=== PATIENT | female | born 2000 | race African-American/Black ===

== ENCOUNTER 2024-03-30 16:17 | Emergency (ER) | payer MEDICAID, SELFPAY ==
[2024-03-30 16:43] VITALS: BP 112/71; PULSE 96; RESP 18; TEMP 37.1; O2SAT 100; BMI 34.1
--- NOTE | 2024-03-30 17:21 | XR_ITS ---
Examination: Complete OB ultrasound, less than 14 weeks, transabdominal Date and time of exam: April 09, 2024 2127 hrs. Indications: Lower back pain and pelvic pain beginning 4 days ago Technique: Obstetrical ultrasound images less than 14 weeks performed via transabdominal imaging Findings: Uterus 8.0 x 4.8 x 4.8 cm Endometrial stripe 0.4 cm No uterine mass or intrauterine gestation Right ovary 4.7 x 3.1 x 3.7 cm arterial flow Left ovary 2.5 x 1.6 x 2.6 cm arterial flow Impression: No uterine mass or intrauterine gestation
--- NOTE | 2024-03-30 17:22 | PD.EDRME ---
Rapid Medical Screening Exam RME Arrival date/time: 03/30/24 16:17 This is a 23-year-old female that complains of lower back pain that started today. Patient denies any trauma. Patient reports last menstrual period was March 01. Patient is a 2 para 1. Patient denies any vaginal bleeding or discharge. Patient denies any urinary symptoms. Patient also complains of lower abdominal pain. Patient denies nausea vomiting diarrhea. I have greeted and performed a focused initial assessment of this patient. Initial appropriate labs ordered at this time. A comprehensive ED assessment and evaluation of the patient and analysis of all test and completion of medical decision making process will be conducted by additional ED provider. Chief Complaint: Back Pain/Injury Time Seen by Provider: 03/30/24 17:09 Vital signs: Vital Signs Temperature 98.8 F 03/30/24 16:43 Pulse Rate 96 03/30/24 16:43 Respiratory Rate 18 03/30/24 16:43 Blood Pressure 112/71 03/30/24 16:43 Pulse Oximetry (%) 100 03/30/24 16:43 Oxygen Delivery Method Room Air 03/30/24 16:43
[2024-03-30 17:45] LABS: Collection Type, Urine Voided
[2024-03-30 17:47] LABS: Basophils # (Auto) 0.1 Thou/mm3 (0.0-0.2); Basophils % (Auto) 1 % (0-2.5); Eosinophils # (Auto) 0.3 Thou/mm3 (0.0-0.5); Eosinophils % (Auto) 3 % (0-10); Hematocrit 37.1 % (36.0-46.0); Hemoglobin 13.3 g/dL (12.0-16.0); Immature Granulocytes % (Auto) 0 % (0-0); Immature Granulocytes Auto 0.02 Thou/mm3 (0.00-0.00); Lymphocytes # (Auto) 1.8 Thou/mm3 (1.0-4.8); Lymphocytes % (Auto) 21 % (10-50); Mean Corpuscular HGB Conc 35.8 g/dl (31.0-37.0); Mean Corpuscular Hemoglobin 28.9 pg (25.0-35.0); Mean Corpuscular Volume 81 fL (80-100); Monocytes # (Auto) 0.8 Thou/mm3 (0.0-0.8); Monocytes % (Auto) 9 % (0-12); Neutrophils # (Auto) 5.6 Thou/mm3 (1.8-7.7); Neutrophils % (Auto) 65 % (37-80); Nucleated Red Blood Cell % 0 /100 WBC (0); Platelet Count 341 Thou/mm3 (140-440); RDW Standard Deviation 37.9 fL (36.4-46.3); Red Blood Count 4.61 Miln/mm3 (4.00-5.20); White Blood Count 8.6 Thou/mm3 (3.6-11.0)
[2024-03-30 17:59] LABS: Bacteria,Urine Rare; Bilirubin,Urine Negative (Negative); Blood,Urine Negative (Negative); Clarity,Urine Clear (Clear/Hazy); Color,Urine Lt-Yellow (Lt Yel-Yel); Culture Indicated,Urine Not Indicated; Glucose, Urine Negative (Negative); Ketones,Urine Negative (Negative); Leukocyte Esterase,Urine Positive (Negative); Nitrite,Urine Negative (Negative); Protein,Urine Negative (Neg - Trace); RBC,Urine 2 /hpf (0-3); Specific Gravity,Urine 1.019 (1.001-1.035); Squamous Epithelial Cell,Urine 4 /hpf (0-5); Urobilinogen,Urine Negative mg/dL (0.0-1.0); WBC,Urine 5 /hpf (0-5)
[2024-03-30 18:05] LABS: Alanine Aminotransferase 16 U/L (10-49); Albumin/Globulin Ratio 1.7 (1.2-2.2); Alkaline Phosphatase 126 U/L (46-116); Anion Gap 6 (7-16); Aspartate Amino Transferase 24 U/L (0-34); BUN/Creatinine Ratio 9 Ratio (12-20); Beta HCG,Quantitative 274 mIU/mL (<5.0); Bilirubin,Total 0.6 mg/dL (0.3-1.2); Blood Urea Nitrogen 7 mg/dL (9-23); Calcium 9.9 mg/dL (8.3-10.6); Calcium (Corrected) 9.9 mg/dL (8.5-10.1); Carbon Dioxide 25.7 mMol/L (20.0-31.0); Chloride 104 mMol/L (98-107); Creatinine (Component) 0.8 mg/dL (0.6-1.3); Estimated Creatinine Clearance 124.3 mL/min (>60); Glucose 95 mg/dL (74-106); Lipase 87 U/L (12-53); Osmolality,Calculated 269 (275-295); Potassium 4.4 mMol/L (3.4-5.1); Sodium 136 mMol/L (136-145); eGFR > 60 See Note
--- NOTE | 2024-03-30 19:22 | PC.NURSE ---
Pt to US at this time from lobby
--- NOTE | 2024-03-30 20:49 | EDNOTE_ITS ---
ED Back Injury Pain RME/HPI General Chief Complaint: Back Pain/Injury Stated Complaint: LOWER BACK PAIN - 4WKS PREG Time Seen by Provider: 03/30/24 17:09 Arrival date/time: 03/30/24 16:17 RME / HPI RME / HPI Narrative: 23-year-old female 2 para 1, came in for evaluation regarding lower back pain that started today. Described as dull ache, severity mild. Patient denies any trauma. Patient reports last menstrual period was March 01. Patient denies any vaginal bleeding or discharge. Denies any abdominal pain denies any pelvic pain patient denies any urinary symptoms. Patient denies nausea vomiting diarrhea. Related Data Allergies Allergy/AdvReac Type Severity Reaction Status Date / Time No Known Allergies Allergy Verified 03/30/24 16:19 Review of Systems Review of Systems Narrative Review of Systems: Review of system reviewed and within normal limits except mentioned in HPI ED Exam Narrative Physical exam: VITAL SIGNS: Reviewed. GENERAL APPEARANCE: Alert and interactive, follows commands, no acute distress, HEAD AND FACE: Non-traumatic. ENT: PERRL, pink conjunctivitis, eyelid no trauma, Mucous membrane moist. NECK: Supple, nontender, no nuchal rigidity. CHEST: No tenderness, no crepitus, no paradoxical movement, no retractions. LUNGS: Clear, well ventilated, symmetric, no rales, no wheezing, no ronchi, no stridor, good breath sounds bilaterally. HEART: Regular rate, regular rhythm, no murmur, no gallops. ABDOMEN: Soft, positive bowel sounds, nondistended, no guarding, nontender, no rebound, no masses, RECTAL: Deferred. GENITAL: Deferred. NEUROLOGICAL: Gross motor function intact sensory function intact, Appropriate for age. MUSCULOSKELETAL: low back tenderness, full range of motion. EXTREMITIES: Nontender, full range of motion. SKIN: Color pink, dry, no rash, no lacerations, no abrasions, no contusions. LYMPHATICS: Deferred. Course Quality Measures none Orders Category Date Time Status US OB <= 14 weeks fetus Stat Exams 03/30/24 17:21 Taken Beta HCG,Quantitative Stat Lab 03/30/24 17:41 Completed CBC Stat Lab 03/30/24 17:41 Completed Comprehensive Metabolic Panel Stat Lab 03/30/24 17:41 Completed Lipase Stat Lab 03/30/24 17:41 Completed Urinalysis, C/S if Indicated Stat Lab 03/30/24 17:26 Completed Vital Signs Vital signs: Vital Signs Temperature 98.8 F 03/30/24 16:43 Pulse Rate 96 03/30/24 16:43 Respiratory Rate 18 03/30/24 16:43 Blood Pressure 112/71 03/30/24 16:43 Pulse Oximetry (%) 100 03/30/24 16:43 Oxygen Delivery Method Room Air 03/30/24 16:43 Back Pain / Injury MDM Narrative MDM Narrative:: 23-year-old female 2 para 1, came in for evaluation regarding lower back pain that started today. Described as dull ache, severity mild. Patient denies any trauma. Patient reports last menstrual period was March 01. Patient denies any vaginal bleeding or discharge. Denies any abdominal pain denies any pelvic pain patient denies any urinary symptoms. Patient denies nausea vomiting diarrhea. Patient's workup all came back with no UTI no leukocytosis, patient's hCG today was noted to be 274. Ultrasound of the showed no gestational sac and no IUP seen at this time. Results discussed with the patient was advised to come back in 3 days for repeat hCG to see the trend. Patient was also advised to come to the emergency room if patient develops abdominal pain. Patient agrees with the plan. Patient data External records reviewed:: None Clinical information provided by:: patient Social determinants that could affect healthcare access:: none (None) Patient has the following chronic illnesses:: None How is presenting disease/condition affected by chronic disease/condition?: no chronic disease Evaluation data The following diagnostics were reviewed and interpreted by me:: lab results and radiology exam(s) Lab and/or radiology exams considered but not ordered:: None Interpretation Summary: Patient's workup all came back with no UTI no leukocytosis, patient's hCG today was noted to be 274. Ultrasound of the showed no gestational sac and no IUP seen at this time. Medications / Prescriptions Medications or Prescriptions considered but not ordered:: None Medication administrations:: None Consultations Consultation(s) initiated? (list below): No Diagnosis Differential diagnosis back pain/injury: sciatica, pyelonephritis and other Most likely diagnosis given after review of the tests above:: Low back pain, Admission Indicated Admission indicated?: not indicated Admission Request Was there a request for admission?: No Disposition Plan Disposition Plan: Discharge Discharge Attestation Discharge Attestation: The patient was given an opportunity to ask questions and understood the discharge instructions. Discharge instructions specifically effects, indications for sooner follow up or return to the emergency department, and the expected course of current diagnosis. Patient condition: Stable Discharge Plan Plan Patient Disposition: HOME (Self Care) Disposition Comment: stable Prescriptions/Referrals Referrals: Felicia Waite [employer] [employer] [employer] [Primary Care Provider] - In 1 week Problem List Clinical Impression: Low back pain, Patient/Caregiver Discharge Instructions Discharge Activity: activity as tolerated Education Materials: First Trimester Additional Instructions: Thank you for the opportunity for serving you today. You are stable for discharged . You are advised to: Follow-up with your PCP in 1 to 2 days or you can return to emergency room in 2 to 3 days for repeat hCG Return to ED for worsening of symptoms Increase oral fluids Take [id number] Tylenol as needed for pain Print Language: Ukrainian Stand Alone Forms: Raya Award Info., Patient Portal Info Letter LARRY/KATELYN Supervising Physician SKYLER Supervising Physician: MD Jude
--- NOTE | 2024-03-30 21:33 | PC.NURSE ---
No answer when called from lobby for discharge papers and instructions.
--- NOTE | 2024-03-30 21:49 | PC.NURSE ---
No answer when called in lobby for discharge instructions and papers.
== END 2024-03-31 22:28 | disposition home or self-care (01) ==
PROVIDERS: Nurse Practitioner Family; Emergency Provider Emergency Medicine; PCP Nurse Practitioner Family
DX: O26.891 Other specified pregnancy related conditions, first trimester (principal); Z3A.01 Less than 8 weeks gestation of pregnancy; M54.50 Low back pain, unspecified
CPT/HCPCS: 36415; 76801; 80053; 81001; 83690; 84702; 85025; 99284

== ENCOUNTER 2024-08-30 13:41 | Observation (INO) | payer MEDICAID, SELFPAY ==
[2024-08-30 13:53] VITALS: BP 122/56; PULSE 98
[2024-08-30 13:58] VITALS: BP 122/56; PULSE 98; RESP 16; RESP 98; TEMP 37; O2SAT 98; BMI 36.1
[2024-08-30 14:19] LABS: Collection Type, Urine Clean Catch
[2024-08-30 14:28] LABS: Bacteria,Urine 1+; Bilirubin,Urine Negative (Negative); Blood,Urine Negative (Negative); Clarity,Urine Turbid (Clear/Hazy); Color,Urine Lt-Yellow (Lt Yel-Yel); Culture Indicated,Urine Yes; Glucose, Urine Negative (Negative); Ketones,Urine 1+ (Negative); Leukocyte Esterase,Urine Positive (Negative); Nitrite,Urine Negative (Negative); PH,Urine 5.5 (5.0-7.0); Protein,Urine Negative (Neg - Trace); RBC,Urine 3 /hpf (0-3); Specific Gravity,Urine 1.012 (1.001-1.035); Squamous Epithelial Cell,Urine 7 /hpf (0-5); Urobilinogen,Urine Negative mg/dL (0.0-1.0); WBC,Urine 48 /hpf (0-5)
== END 2024-08-30 15:45 | disposition home or self-care (01) ==
PROVIDERS: Admitting Provider Obstetrics & Gynecology; Visit Provider Obstetrics & Gynecology
DX: O47.02 False labor before 37 completed weeks of gestation, second trimester (principal); Z3A.26 26 weeks gestation of pregnancy
CPT/HCPCS: 59025; 59899; 81001; 87086